=== PATIENT | female | born 1945 | race Caucasian/White ===

== ENCOUNTER 2020-03-19 17:22 | Inpatient (IN) ==
[2020-03-19] MEDS ORDERED: Ondansetron ODT 4 MG TAB.RAPDIS SL PRN (20:16)
[2020-03-19] MEDS ORDERED: Acetaminophen 325 MG TABLET PO PRN (20:16)
[2020-03-19] MEDS ORDERED: Naloxone 0.4 MG/ML INJ IVP PRN (20:16)
[2020-03-19] MEDS ORDERED: Perflutren Lipid Microsphere 1.3 ML in 0.9 % Sodium Chloride 8.7 ML IVP PRN (20:22)
[2020-03-19 21:03] LABS: Basophils # 0.1 K/mcL (0.0-0.2); Basophils % 0.4 %; Eosinophils # 0.1 K/mcL (0.0-0.6); Eosinophils % 0.4 %; Hemoglobin 9.1 g/dL (11.5-15.4); Immature Granulocytes % 0.6 % (0-4); Lymphocytes # 1.4 K/mcL (0.6-4.6); Lymphocytes % 10.3 %; Mean Corpuscular HGB Conc 28.4 g/dL (31.6-35.5); Mean Corpuscular Hemoglobin 20.4 pg (28.0-33.3); Mean Corpuscular Volume 71.6 fL (83.0-100.0); Mean Platelet Volume 11.2 fL (9.4-12.4); Monocytes # 1.2 K/mcL (0.0-1.3); Monocytes % 8.3 %; Neutrophils # 11.2 K/mcL (1.6-8.9); Nucleated Red Blood Cells 0.2 /100 WBC (0); Platelet Count 360 K/mcL (140-400); Red Blood Count 4.47 M/mcL (3.82-4.97); Red Cell Distribution Width 20.1 % (11.5-14.5)
[2020-03-19 21:14] LABS: BUN/Creatinine Ratio 38 (6-26); Blood Urea Nitrogen 36 mg/dL (8-23); Calcium 10.2 mg/dL (8.6-10.3); Carbon Dioxide 21 mEq/L (23-29); Chloride 101 mEq/L (98-107); Glucose 108 mg/dL (70-105); Osmolality,Calculated 287 (280-300); Potassium 4.2 mEq/L (3.5-5.1); Sodium 134 mEq/L (136-145); eGFR For African Americans > 60 (> 60); eGFR For Non-African Americans 58 (> 60)
[2020-03-19 21:20] LABS: Anisocytosis 2+ (Not Present); Hypochromasia Present (Not Present); Platelet Estimate Normal (Normal)
[2020-03-19] MEDS ORDERED: Nystatin Ointment 15 GM TUBE TP SCH (21:30)
[2020-03-19] MEDS ORDERED: Furosemide 40 MG/4 ML VIAL IVP ONE (21:50)
[2020-03-20 07:18] LABS: Prothrombin Time 22.5 Seconds (9.4-12.1)
[2020-03-20] MEDS ORDERED: Dextrose Gel 15 GM/37.5 ML TUBE PO PRN ×2 (07:22)
[2020-03-20] MEDS ORDERED: *HR* Dextrose 50 % in Water (Vial) 50 ML VIAL IVP PRN (07:22)
[2020-03-20] MEDS ORDERED: D5% in Water 1,000 ML IVC PRN (07:22)
[2020-03-20 07:50] LABS: BUN/Creatinine Ratio 38 (6-26); Blood Urea Nitrogen 34 mg/dL (8-23); Calcium 9.3 mg/dL (8.6-10.3); Carbon Dioxide 22 mEq/L (23-29); Chloride 103 mEq/L (98-107); Glucose 99 mg/dL (70-105); Magnesium 1.7 mg/dL (1.6-2.6); Osmolality,Calculated 290 (280-300); Phosphorous 3.6 mg/dL (2.7-4.5); Potassium 3.8 mEq/L (3.5-5.1); Sodium 136 mEq/L (136-145); eGFR For African Americans > 60 (> 60); eGFR For Non-African Americans > 60 (> 60)
[2020-03-20 08:34] LABS: % Iron Saturation 11 % (15-50); Iron 35 mcg/dL (50-170); Transferrin 237 mg/dL (203-362)
[2020-03-20] MEDS: Insulin LISPRO 300 UNITS/3 ML VIAL SUBQ SCH ×4 (08:42→19:46)
[2020-03-20 08:52] LABS: Ferritin 22 ng/mL (10-120)
[2020-03-20] MEDS ORDERED: cefTRIAXone 1,000 MG in 0.9 % Sodium Chloride Mini Bag 100 ML IVPB SCH (09:00)
[2020-03-20] MEDS: 0.9 % Sodium Chloride 500 ML IVC SCH (10:48)
[2020-03-20 11:51] LABS: Folate 8.3 ng/mL (3.0-16.0)
[2020-03-20] MEDS: cefTRIAXone 1,000 MG in Water for inj. (sterile) 10 ML IVP SCH (18:17)
[2020-03-20] MEDS: Azithromycin 500 MG in 0.9 % Sodium Chloride 250 ML IVPB SCH (18:19)
[2020-03-20] MEDS: Fluconazole 200 MG/100 ML 200 MG/100 ML BAG IVPB SCH (18:19)
[2020-03-20] MEDS: Pantoprazole 40 MG VIAL IVP SCH (18:20)
[2020-03-21] MEDS: Insulin LISPRO 300 UNITS/3 ML VIAL SUBQ SCH ×6 (00:20→20:45)
[2020-03-21] MEDS: Pantoprazole 40 MG VIAL IVP SCH ×2 (05:47→18:12)
[2020-03-21] MEDS: 0.9 % Sodium Chloride 500 ML IVC SCH ×2 (07:21→17:49)
[2020-03-21 09:14] LABS: Hemoglobin 8.5 g/dL (11.5-15.4); Immature Granulocytes % 0.9 % (0-4); Nucleated Red Blood Cells 0.2 /100 WBC (0)
[2020-03-21 09:15] LABS: Hematocrit 30.1 % (35.3-44.9); Mean Corpuscular HGB Conc 28.2 g/dL (31.6-35.5); Mean Corpuscular Hemoglobin 20.4 pg (28.0-33.3); Mean Corpuscular Volume 72.4 fL (83.0-100.0); Platelet Count 347 K/mcL (140-400); Red Blood Count 4.16 M/mcL (3.82-4.97); Red Cell Distribution Width 20.6 % (11.5-14.5); Segmented Neutrophils % 72.8 %; White Blood Count 12.7 K/mcL (4.3-11.1)
[2020-03-21 09:16] LABS: Basophils # 0.1 K/mcL (0.0-0.2); Basophils % 0.5 %; Eosinophils # 0.5 K/mcL (0.0-0.6); Eosinophils % 4.1 %; Lymphocytes # 1.7 K/mcL (0.6-4.6); Lymphocytes % 13.2 %; Monocytes # 1.1 K/mcL (0.0-1.3); Monocytes % 8.5 %
[2020-03-21 09:20] LABS: Neutrophils # 9.3 K/mcL (1.6-8.9)
[2020-03-21 09:34] LABS: BUN/Creatinine Ratio 38 (6-26); Blood Urea Nitrogen 33 mg/dL (8-23); Calcium 9.2 mg/dL (8.6-10.3); Carbon Dioxide 24 mEq/L (23-29); Chloride 105 mEq/L (98-107); Glucose 167 mg/dL (70-105); Osmolality,Calculated 295 (280-300); Potassium 3.7 mEq/L (3.5-5.1); Sodium 137 mEq/L (136-145); eGFR For African Americans > 60 (> 60); eGFR For Non-African Americans > 60 (> 60)
[2020-03-21 09:38] LABS: Anisocytosis 2+ (Not Present); Hypochromasia Present (Not Present); Ovalocytes 1+ (Not Present)
[2020-03-21 09:39] LABS: Platelet Estimate Normal (Normal)
[2020-03-21] MEDS: cefTRIAXone 1,000 MG in Water for inj. (sterile) 10 ML IVP SCH (13:07)
[2020-03-21] MEDS: Azithromycin 500 MG in 0.9 % Sodium Chloride 250 ML IVPB SCH (13:08)
[2020-03-21] MEDS: Fluconazole 200 MG/100 ML 200 MG/100 ML BAG IVPB SCH (18:09)
[2020-03-22] MEDS: Insulin LISPRO 300 UNITS/3 ML VIAL SUBQ SCH ×6 (00:29→21:01)
[2020-03-22 03:28] LABS: Hemoglobin 7.7 g/dL (11.5-15.4); Monocytes % 8.8 %; Red Cell Distribution Width 20.6 % (11.5-14.5)
[2020-03-22 03:29] LABS: Basophils # 0.1 K/mcL (0.0-0.2); Basophils % 0.5 %; Eosinophils # 0.5 K/mcL (0.0-0.6); Hematocrit 27.2 % (35.3-44.9); Lymphocytes # 1.5 K/mcL (0.6-4.6); Lymphocytes % 11.5 %; Mean Corpuscular HGB Conc 28.3 g/dL (31.6-35.5); Mean Corpuscular Hemoglobin 20.4 pg (28.0-33.3); Mean Platelet Volume 11.2 fL (9.4-12.4); Monocytes # 1.2 K/mcL (0.0-1.3); Neutrophils # 9.8 K/mcL (1.6-8.9); Platelet Count 301 K/mcL (140-400); Red Blood Count 3.78 M/mcL (3.82-4.97); Segmented Neutrophils % 74.2 %; White Blood Count 13.2 K/mcL (4.3-11.1)
[2020-03-22 03:47] LABS: BUN/Creatinine Ratio 39 (6-26); Blood Urea Nitrogen 33 mg/dL (8-23); Calcium 8.9 mg/dL (8.6-10.3); Carbon Dioxide 24 mEq/L (23-29); Chloride 105 mEq/L (98-107); Glucose 129 mg/dL (70-105); Osmolality,Calculated 295 (280-300); Potassium 3.8 mEq/L (3.5-5.1); Sodium 138 mEq/L (136-145); eGFR For African Americans > 60 (> 60); eGFR For Non-African Americans > 60 (> 60)
[2020-03-22 03:59] LABS: Anisocytosis 2+ (Not Present); Hypochromasia Present (Not Present); Platelet Estimate Normal (Normal)
[2020-03-22] MEDS: Pantoprazole 40 MG VIAL IVP SCH ×2 (06:05→17:51)
[2020-03-22] MEDS: 0.9 % Sodium Chloride 500 ML IVC SCH (08:22)
[2020-03-22 09:44] LABS: Basophils # 0.1 K/mcL (0.0-0.2); Basophils % 0.5 %; Eosinophils # 0.3 K/mcL (0.0-0.6); Eosinophils % 2.4 %; Hematocrit 27.4 % (35.3-44.9); Hemoglobin 7.6 g/dL (11.5-15.4); Lymphocytes # 0.9 K/mcL (0.6-4.6); Mean Corpuscular HGB Conc 27.7 g/dL (31.6-35.5); Mean Corpuscular Hemoglobin 20.1 pg (28.0-33.3); Mean Corpuscular Volume 72.3 fL (83.0-100.0); Mean Platelet Volume 10.8 fL (9.4-12.4); Monocytes % 8.3 %; Neutrophils # 9.9 K/mcL (1.6-8.9); Platelet Count 317 K/mcL (140-400); Red Blood Count 3.79 M/mcL (3.82-4.97); Red Cell Distribution Width 20.8 % (11.5-14.5); Segmented Neutrophils % 80.8 %; White Blood Count 12.2 K/mcL (4.3-11.1)
[2020-03-22 10:03] LABS: BUN/Creatinine Ratio 38 (6-26); Blood Urea Nitrogen 33 mg/dL (8-23); Calcium 8.9 mg/dL (8.6-10.3); Carbon Dioxide 25 mEq/L (23-29); Chloride 107 mEq/L (98-107); Glucose 205 mg/dL (70-105); Hypochromasia Present (Not Present); Osmolality,Calculated 301 (280-300); Ovalocytes 1+ (Not Present); Platelet Estimate Normal (Normal); Potassium 3.9 mEq/L (3.5-5.1); Sodium 139 mEq/L (136-145); eGFR For African Americans > 60 (> 60); eGFR For Non-African Americans > 60 (> 60)
[2020-03-22 10:04] LABS: Anisocytosis 2+ (Not Present); Polychromasia 1+ (Not Present)
[2020-03-22] MEDS ORDERED: *HR* Propofol 200 MG/20 ML VIAL IVP ONE (12:13)
[2020-03-22] MEDS ORDERED: Lidocaine -MPF 2% 5 ML VIAL INFILT ONE (12:13)
[2020-03-22] MEDS: cefTRIAXone 1,000 MG in Water for inj. (sterile) 10 ML IVP SCH (13:35)
[2020-03-22] MEDS: Azithromycin 500 MG in 0.9 % Sodium Chloride 250 ML IVPB SCH (13:35)
[2020-03-22] MEDS: Fluconazole 200 MG/100 ML 200 MG/100 ML BAG IVPB SCH (17:51)
[2020-03-22] MEDS: Furosemide 40 MG/4 ML VIAL IVP SCH (18:53)
[2020-03-22] MEDS: Ipratropium/Albuterol Neb 3 ML IH SCH (22:04)
[2020-03-23] MEDS: Insulin LISPRO 300 UNITS/3 ML VIAL SUBQ SCH ×6 (00:54→20:31)
[2020-03-23] MEDS ORDERED: Pantoprazole 40 MG VIAL IVP ONE (01:24)
[2020-03-23 02:09] LABS: Basophils % 0.3 %; Eosinophils # 0.2 K/mcL (0.0-0.6); Eosinophils % 1.3 %; Hemoglobin 7.6 g/dL (11.5-15.4); Lymphocytes # 0.8 K/mcL (0.6-4.6); Lymphocytes % 6.4 %; Mean Corpuscular HGB Conc 28.1 g/dL (31.6-35.5); Mean Corpuscular Hemoglobin 20.3 pg (28.0-33.3); Mean Corpuscular Volume 72.2 fL (83.0-100.0); Mean Platelet Volume 10.8 fL (9.4-12.4); Monocytes % 8.3 %; Neutrophils # 9.9 K/mcL (1.6-8.9); Nucleated Red Blood Cells 0.2 /100 WBC (0); Platelet Count 291 K/mcL (140-400); Red Blood Count 3.74 M/mcL (3.82-4.97); Segmented Neutrophils % 82.7 %
[2020-03-23 02:28] LABS: BUN/Creatinine Ratio 44 (6-26); Blood Urea Nitrogen 33 mg/dL (8-23); Calcium 9.1 mg/dL (8.6-10.3); Carbon Dioxide 24 mEq/L (23-29); Chloride 106 mEq/L (98-107); Glucose 159 mg/dL (70-105); Osmolality,Calculated 301 (280-300); Potassium 4.1 mEq/L (3.5-5.1); Sodium 140 mEq/L (136-145); eGFR For African Americans > 60 (> 60); eGFR For Non-African Americans > 60 (> 60)
[2020-03-23] MEDS ORDERED: Aspirin 325 MG TABLET PO ONE (03:10)
[2020-03-23 03:19] LABS: Anisocytosis 1+ (Not Present); Hypochromasia Present (Not Present); Polychromasia 1+ (Not Present)
[2020-03-23 03:20] LABS: Ovalocytes 1+ (Not Present); Platelet Estimate Normal (Normal)
[2020-03-23] MEDS: Ipratropium/Albuterol Neb 3 ML IH SCH ×4 (04:24→21:52)
[2020-03-23] MEDS: Pantoprazole 40 MG VIAL IVP SCH ×2 (05:26→16:58)
[2020-03-23] MEDS: Furosemide 40 MG/4 ML VIAL IVP SCH ×2 (08:48→16:57)
[2020-03-23] MEDS: cefTRIAXone 1,000 MG in Water for inj. (sterile) 10 ML IVP SCH (14:13)
[2020-03-23] MEDS: Fluconazole 100 MG TABLET PO SCH (14:19)
[2020-03-24 02:55] LABS: Basophils # 0.1 K/mcL (0.0-0.2); Basophils % 0.4 %; Eosinophils # 0.4 K/mcL (0.0-0.6); Eosinophils % 3.5 %; Hematocrit 25.4 % (35.3-44.9); Immature Granulocytes % 1.1 % (0-4); Lymphocytes # 1.2 K/mcL (0.6-4.6); Lymphocytes % 9.8 %; Mean Corpuscular HGB Conc 27.6 g/dL (31.6-35.5); Mean Corpuscular Hemoglobin 19.9 pg (28.0-33.3); Mean Corpuscular Volume 72.2 fL (83.0-100.0); Nucleated Red Blood Cells 0.2 /100 WBC (0); Platelet Count 267 K/mcL (140-400); Red Blood Count 3.52 M/mcL (3.82-4.97); Red Cell Distribution Width 21.7 % (11.5-14.5); Segmented Neutrophils % 77.2 %; White Blood Count 12.1 K/mcL (4.3-11.1)
[2020-03-24 03:00] LABS: Neutrophils # 9.3 K/mcL (1.6-8.9)
[2020-03-24 03:15] LABS: BUN/Creatinine Ratio 41 (6-26); Blood Urea Nitrogen 34 mg/dL (8-23); Calcium 8.9 mg/dL (8.6-10.3); Carbon Dioxide 27 mEq/L (23-29); Chloride 105 mEq/L (98-107); Glucose 144 mg/dL (70-105); Osmolality,Calculated 298 (280-300); Potassium 4.1 mEq/L (3.5-5.1); Sodium 139 mEq/L (136-145); eGFR For African Americans > 60 (> 60); eGFR For Non-African Americans > 60 (> 60)
[2020-03-24 03:20] LABS: Anisocytosis 1+ (Not Present); Platelet Estimate Normal (Normal)
[2020-03-24 03:21] LABS: Hypochromasia Present (Not Present); Microcytosis Present (Not Present)
[2020-03-24] MEDS: Ipratropium/Albuterol Neb 3 ML IH SCH ×3 (04:03→15:48)
[2020-03-24] MEDS: Pantoprazole 40 MG VIAL IVP SCH ×2 (06:03→16:13)
[2020-03-24] MEDS: Insulin LISPRO 300 UNITS/3 ML VIAL SUBQ SCH ×4 (10:08→21:22)
[2020-03-24] MEDS: Fluconazole 100 MG TABLET PO SCH (10:08)
[2020-03-24] MEDS: Furosemide 40 MG/4 ML VIAL IVP SCH ×2 (10:08→16:12)
[2020-03-24 10:22] LABS: Basophils % 0.4 %; Red Blood Count 3.48 M/mcL (3.82-4.97)
[2020-03-24 10:23] LABS: Eosinophils # 0.3 K/mcL (0.0-0.6); Eosinophils % 3.2 %; Hematocrit 25.6 % (35.3-44.9); Hemoglobin 7.1 g/dL (11.5-15.4); Immature Granulocytes % 0.7 % (0-4); Lymphocytes % 8.1 %; Mean Corpuscular HGB Conc 27.7 g/dL (31.6-35.5); Mean Corpuscular Hemoglobin 20.4 pg (28.0-33.3); Mean Corpuscular Volume 73.6 fL (83.0-100.0); Mean Platelet Volume 11.2 fL (9.4-12.4); Monocytes # 0.8 K/mcL (0.0-1.3); Neutrophils # 8.3 K/mcL (1.6-8.9); Platelet Count 271 K/mcL (140-400); Red Cell Distribution Width 21.3 % (11.5-14.5); Segmented Neutrophils % 79.6 %; White Blood Count 10.4 K/mcL (4.3-11.1)
[2020-03-24 10:25] LABS: Lymphocytes # 0.8 K/mcL (0.6-4.6)
[2020-03-24 10:50] LABS: Hypochromasia Present (Not Present); Ovalocytes 1+ (Not Present); Platelet Estimate Normal (Normal); Stomatocytes 1+ (Not Present)
[2020-03-24] MEDS: Iron Sucrose Complex 250 MG in 0.9 % Sodium Chloride 250 ML IVPB SCH (14:04)
[2020-03-24 17:23] LABS: Basophils # 0.1 K/mcL (0.0-0.2); Basophils % 0.5 %; Eosinophils # 0.5 K/mcL (0.0-0.6); Eosinophils % 4.7 %; Hematocrit 26.7 % (35.3-44.9); Hemoglobin 7.2 g/dL (11.5-15.4); Immature Granulocytes % 0.9 % (0-4); Lymphocytes # 1.6 K/mcL (0.6-4.6); Lymphocytes % 14.4 %; Mean Corpuscular Hemoglobin 19.7 pg (28.0-33.3); Monocytes % 8.6 %; Neutrophils # 7.9 K/mcL (1.6-8.9); Nucleated Red Blood Cells 0.2 /100 WBC (0); Platelet Count 252 K/mcL (140-400); Red Blood Count 3.66 M/mcL (3.82-4.97); Red Cell Distribution Width 21.3 % (11.5-14.5); Segmented Neutrophils % 70.9 %; White Blood Count 11.1 K/mcL (4.3-11.1)
[2020-03-24 17:24] LABS: Hypochromasia Present (Not Present)
[2020-03-25 04:43] LABS: Nucleated Red Blood Cells 0.2 /100 WBC (0)
[2020-03-25 04:45] LABS: Basophils # 0.1 K/mcL (0.0-0.2); Basophils % 0.6 %; Eosinophils # 0.6 K/mcL (0.0-0.6); Hematocrit 26.6 % (35.3-44.9); Hemoglobin 7.3 g/dL (11.5-15.4); Immature Granulocytes % 1.1 % (0-4); Lymphocytes # 1.2 K/mcL (0.6-4.6); Lymphocytes % 9.8 %; Mean Corpuscular HGB Conc 27.4 g/dL (31.6-35.5); Mean Corpuscular Hemoglobin 19.8 pg (28.0-33.3); Mean Corpuscular Volume 72.3 fL (83.0-100.0); Mean Platelet Volume 10.8 fL (9.4-12.4); Monocytes # 1.1 K/mcL (0.0-1.3); Monocytes % 8.6 %; Neutrophils # 9.5 K/mcL (1.6-8.9); Platelet Count 286 K/mcL (140-400); Red Blood Count 3.68 M/mcL (3.82-4.97); Red Cell Distribution Width 21.5 % (11.5-14.5); Segmented Neutrophils % 74.9 %; White Blood Count 12.7 K/mcL (4.3-11.1)
[2020-03-25 04:51] LABS: BUN/Creatinine Ratio 41 (6-26); Blood Urea Nitrogen 32 mg/dL (8-23); Calcium 9.3 mg/dL (8.6-10.3); Carbon Dioxide 28 mEq/L (23-29); Chloride 104 mEq/L (98-107); Glucose 137 mg/dL (70-105); Hypochromasia Present (Not Present); Osmolality,Calculated 293 (280-300); Platelet Estimate Normal (Normal); Potassium 4.9 mEq/L (3.5-5.1); Sodium 137 mEq/L (136-145); eGFR For African Americans > 60 (> 60); eGFR For Non-African Americans > 60 (> 60)
[2020-03-25] MEDS: Ipratropium/Albuterol Neb 3 ML IH PRN ×2 (04:59→20:03)
[2020-03-25] MEDS: Pantoprazole 40 MG VIAL IVP SCH ×2 (05:41→17:29)
[2020-03-25] MEDS: Furosemide 40 MG/4 ML VIAL IVP SCH ×2 (08:25→17:27)
[2020-03-25] MEDS: Fluconazole 100 MG TABLET PO SCH (08:25)
[2020-03-25] MEDS: Insulin LISPRO 300 UNITS/3 ML VIAL SUBQ SCH ×4 (08:27→21:15)
[2020-03-25] MEDS: Iron Sucrose Complex 250 MG in 0.9 % Sodium Chloride 250 ML IVPB SCH (10:19)
[2020-03-25] MEDS: Acetaminophen 325 MG TABLET PO PRN (22:27)
[2020-03-26] MEDS: Ipratropium/Albuterol Neb 3 ML IH PRN (04:03)
[2020-03-26] MEDS: Pantoprazole 40 MG VIAL IVP SCH (05:09)
[2020-03-26] MEDS: Insulin LISPRO 300 UNITS/3 ML VIAL SUBQ SCH ×4 (08:04→20:39)
[2020-03-26 08:16] LABS: Nucleated Red Blood Cells 0.3 /100 WBC (0)
[2020-03-26 08:17] LABS: Basophils # 0.1 K/mcL (0.0-0.2); Basophils % 0.5 %; Eosinophils # 0.5 K/mcL (0.0-0.6); Eosinophils % 4.1 %; Hematocrit 27.4 % (35.3-44.9); Hemoglobin 7.6 g/dL (11.5-15.4); Immature Granulocytes % 1.6 % (0-4); Lymphocytes # 1.4 K/mcL (0.6-4.6); Lymphocytes % 12.2 %; Mean Corpuscular HGB Conc 27.7 g/dL (31.6-35.5); Mean Corpuscular Hemoglobin 20.3 pg (28.0-33.3); Mean Corpuscular Volume 73.1 fL (83.0-100.0); Mean Platelet Volume 10.9 fL (9.4-12.4); Monocytes # 0.9 K/mcL (0.0-1.3); Monocytes % 7.8 %; Neutrophils # 8.5 K/mcL (1.6-8.9); Platelet Count 295 K/mcL (140-400); Red Blood Count 3.75 M/mcL (3.82-4.97); Segmented Neutrophils % 73.8 %; White Blood Count 11.5 K/mcL (4.3-11.1)
[2020-03-26 08:33] LABS: BUN/Creatinine Ratio 33 (6-26); Blood Urea Nitrogen 25 mg/dL (8-23); Calcium 9.5 mg/dL (8.6-10.3); Carbon Dioxide 27 mEq/L (23-29); Chloride 103 mEq/L (98-107); Glucose 121 mg/dL (70-105); Osmolality,Calculated 292 (280-300); Potassium 4.4 mEq/L (3.5-5.1); Sodium 138 mEq/L (136-145); eGFR For African Americans > 60 (> 60); eGFR For Non-African Americans > 60 (> 60)
[2020-03-26 08:38] LABS: Platelet Estimate Normal (Normal)
[2020-03-26 08:39] LABS: Hypochromasia Present (Not Present); Microcytosis Present (Not Present); Ovalocytes 1+ (Not Present); Poikilocytosis 1+ (Not Present)
[2020-03-26 08:40] LABS: Anisocytosis 2+ (Not Present)
[2020-03-26] MEDS: Acetaminophen 325 MG TABLET PO PRN ×2 (09:44→22:48)
[2020-03-26] MEDS: Furosemide 40 MG/4 ML VIAL IVP SCH ×2 (09:46→17:04)
[2020-03-26] MEDS: Fluconazole 100 MG TABLET PO SCH (09:48)
[2020-03-26] MEDS: Iron Sucrose Complex 250 MG in 0.9 % Sodium Chloride 250 ML IVPB SCH (09:49)
[2020-03-26] MEDS ORDERED: Isovue-370 500 ML BOTTLE IVP ONE (15:10)
[2020-03-26] MEDS ORDERED: Furosemide 40 MG/4 ML VIAL IVP SCH (17:15)
[2020-03-26] MEDS: levoFLOXacin 750 MG/150 ML 750 MG/150 ML BAG IVPB SCH (17:57)
[2020-03-26 19:40] LABS: Adenovirus Not Detected (Not Detect); Bordetella Pertussis Not Detected (Not Detect); Chlamydophila pneumoniae Not Detected (Not Detect); Coronavirus 229E Not Detected (Not Detect); Coronavirus HKU1 Not Detected (Not Detect); Coronavirus NL63 Not Detected (Not Detect); Coronavirus OC43 Not Detected (Not Detect); Human Metapneumovirus Not Detected (Not Detect); Human Rhinovirus/Enterovirus Not Detected (Not Detect); Influenza A Subtype 2009 H1 Not Detected (Not Detect); Influenza B Not Detected (Not Detect); Mycoplasma pneumoniae Not Detected (Not Detect); Parainfluenza Virus 1 Not Detected (Not Detect); Parainfluenza Virus 2 Not Detected (Not Detect); Parainfluenza Virus 3 Not Detected (Not Detect); Parainfluenza Virus 4 Not Detected (Not Detect); Respiratory Syncytial Virus Not Detected (Not Detect); SARS-CoV-2 Not Detected (Not Detect)
[2020-03-27] MEDS: Acetaminophen 325 MG TABLET PO PRN ×3 (02:52→23:04)
[2020-03-27 04:16] LABS: Basophils # 0.1 K/mcL (0.0-0.2); Basophils % 0.6 %; Eosinophils # 0.6 K/mcL (0.0-0.6); Eosinophils % 5.9 %; Hematocrit 27.3 % (35.3-44.9); Hemoglobin 7.5 g/dL (11.5-15.4); Immature Granulocytes % 2.5 % (0-4); Lymphocytes % 14.2 %; Mean Corpuscular HGB Conc 27.5 g/dL (31.6-35.5); Mean Corpuscular Hemoglobin 20.1 pg (28.0-33.3); Mean Corpuscular Volume 73.2 fL (83.0-100.0); Mean Platelet Volume 11.4 fL (9.4-12.4); Neutrophils # 7.4 K/mcL (1.6-8.9); Nucleated Red Blood Cells 1.1 /100 WBC (0); Platelet Count 292 K/mcL (140-400); Red Blood Count 3.73 M/mcL (3.82-4.97); Red Cell Distribution Width 22.3 % (11.5-14.5); Segmented Neutrophils % 67.8 %; White Blood Count 10.9 K/mcL (4.3-11.1)
[2020-03-27 04:19] LABS: Lymphocytes # 1.6 K/mcL (0.6-4.6)
[2020-03-27 04:30] LABS: BUN/Creatinine Ratio 26 (6-26); Blood Urea Nitrogen 21 mg/dL (8-23); Calcium 9.1 mg/dL (8.6-10.3); Carbon Dioxide 26 mEq/L (23-29); Chloride 102 mEq/L (98-107); Glucose 96 mg/dL (70-105); Osmolality,Calculated 285 (280-300); Sodium 136 mEq/L (136-145); eGFR For African Americans > 60 (> 60); eGFR For Non-African Americans > 60 (> 60)
[2020-03-27 04:37] LABS: Anisocytosis 2+ (Not Present); Hypochromasia Present (Not Present); Macrocytosis Present (Not Present); Platelet Estimate Normal (Normal); Polychromasia 1+ (Not Present)
[2020-03-27] MEDS: Furosemide 40 MG/4 ML VIAL IVP SCH ×2 (08:05→16:06)
[2020-03-27] MEDS: Insulin LISPRO 300 UNITS/3 ML VIAL SUBQ SCH ×4 (08:06→23:05)
[2020-03-27] MEDS: Fluconazole 100 MG TABLET PO SCH (10:45)
[2020-03-27] MEDS: levoFLOXacin 750 MG/150 ML 750 MG/150 ML BAG IVPB SCH (10:46)
[2020-03-28 05:55] LABS: Basophils % 0.7 %
[2020-03-28 05:56] LABS: Basophils # 0.1 K/mcL (0.0-0.2); Eosinophils # 0.5 K/mcL (0.0-0.6); Eosinophils % 5.3 %; Hematocrit 32.2 % (35.3-44.9); Hemoglobin 8.7 g/dL (11.5-15.4); Immature Granulocytes % 2.6 % (0-4); Immature Platelets 8.3 % (1.1-6.1); Lymphocytes # 1.6 K/mcL (0.6-4.6); Lymphocytes % 15.5 %; Mean Corpuscular Hemoglobin 20.3 pg (28.0-33.3); Mean Corpuscular Volume 75.2 fL (83.0-100.0); Monocytes # 0.8 K/mcL (0.0-1.3); Monocytes % 7.8 %; Nucleated Red Blood Cells 0.3 /100 WBC (0); Platelet Count 251 K/mcL (140-400); Red Blood Count 4.28 M/mcL (3.82-4.97); Red Cell Distribution Width 24.3 % (11.5-14.5); Segmented Neutrophils % 68.1 %; White Blood Count 10.2 K/mcL (4.3-11.1)
[2020-03-28 06:13] LABS: BUN/Creatinine Ratio 23 (6-26); Blood Urea Nitrogen 19 mg/dL (8-23); Calcium 9.5 mg/dL (8.6-10.3); Carbon Dioxide 27 mEq/L (23-29); Chloride 103 mEq/L (98-107); Glucose 102 mg/dL (70-105); Osmolality,Calculated 290 (280-300); Potassium 4.1 mEq/L (3.5-5.1); Sodium 139 mEq/L (136-145); eGFR For African Americans > 60 (> 60); eGFR For Non-African Americans > 60 (> 60)
[2020-03-28] MEDS: Insulin LISPRO 300 UNITS/3 ML VIAL SUBQ SCH ×4 (07:17→21:55)
[2020-03-28 07:43] LABS: Anisocytosis 2+ (Not Present); Hypochromasia Present (Not Present); Macrocytosis Present (Not Present); Microcytosis Present (Not Present); Ovalocytes 1+ (Not Present); Platelet Estimate Slight Decrease (Normal)
[2020-03-28] MEDS: Furosemide 40 MG/4 ML VIAL IVP SCH ×2 (07:59→16:26)
[2020-03-28] MEDS: levoFLOXacin 750 MG/150 ML 750 MG/150 ML BAG IVPB SCH (11:15)
[2020-03-28] MEDS: Fluconazole 100 MG TABLET PO SCH (11:15)
[2020-03-28] MEDS ORDERED: Simethicone 80 MG TAB.CHEW PO PRN (13:16)
[2020-03-28] MEDS: Acetaminophen 325 MG TABLET PO PRN (22:01)
[2020-03-29 02:02] LABS: Mean Corpuscular HGB Conc 27.2 g/dL (31.6-35.5)
[2020-03-29 02:04] LABS: Basophils # 0.1 K/mcL (0.0-0.2); Basophils % 0.6 %; Eosinophils # 0.4 K/mcL (0.0-0.6); Eosinophils % 4.3 %; Hematocrit 34.2 % (35.3-44.9); Hemoglobin 9.3 g/dL (11.5-15.4); Immature Granulocytes % 3.2 % (0-4); Lymphocytes # 1.9 K/mcL (0.6-4.6); Lymphocytes % 19.3 %; Mean Corpuscular Hemoglobin 20.4 pg (28.0-33.3); Mean Corpuscular Volume 75.2 fL (83.0-100.0); Mean Platelet Volume 10.7 fL (9.4-12.4); Monocytes # 0.8 K/mcL (0.0-1.3); Monocytes % 8.7 %; Neutrophils # 6.2 K/mcL (1.6-8.9); Platelet Count 283 K/mcL (140-400); Red Blood Count 4.55 M/mcL (3.82-4.97); Red Cell Distribution Width 25.8 % (11.5-14.5); Segmented Neutrophils % 63.9 %; White Blood Count 9.7 K/mcL (4.3-11.1)
[2020-03-29 02:19] LABS: Anisocytosis 3+ (Not Present); Hypochromasia Present (Not Present); Macrocytosis Present (Not Present); Microcytosis Present (Not Present); Platelet Estimate Normal (Normal)
[2020-03-29] MEDS: Insulin LISPRO 300 UNITS/3 ML VIAL SUBQ SCH ×4 (08:13→19:30)
[2020-03-29] MEDS: Furosemide 40 MG/4 ML VIAL IVP SCH ×2 (08:21→17:12)
[2020-03-29] MEDS: levoFLOXacin 750 MG/150 ML 750 MG/150 ML BAG IVPB SCH (08:21)
[2020-03-29] MEDS: Fluconazole 100 MG TABLET PO SCH (08:22)
[2020-03-29] MEDS: Acetaminophen 325 MG TABLET PO PRN (20:26)
[2020-03-30] MEDS: Insulin LISPRO 300 UNITS/3 ML VIAL SUBQ SCH ×4 (07:20→19:29)
[2020-03-30] MEDS: levoFLOXacin 750 MG/150 ML 750 MG/150 ML BAG IVPB SCH (09:38)
[2020-03-30] MEDS: Furosemide 40 MG/4 ML VIAL IVP SCH ×2 (09:39→17:33)
[2020-03-30] MEDS: Fluconazole 100 MG TABLET PO SCH (09:39)
[2020-03-31] MEDS: Insulin LISPRO 300 UNITS/3 ML VIAL SUBQ SCH ×4 (08:26→21:37)
[2020-03-31] MEDS: levoFLOXacin 750 MG TABLET PO SCH (08:27)
[2020-03-31] MEDS: Furosemide 40 MG/4 ML VIAL IVP SCH ×2 (08:28→16:57)
[2020-03-31] MEDS: Fluconazole 100 MG TABLET PO SCH (08:28)
[2020-03-31] MEDS: Acetaminophen 325 MG TABLET PO PRN (21:45)
[2020-04-01] MEDS: Insulin LISPRO 300 UNITS/3 ML VIAL SUBQ SCH ×4 (07:27→21:06)
[2020-04-01] MEDS: Fluconazole 100 MG TABLET PO SCH (08:00)
[2020-04-01] MEDS: Furosemide 40 MG/4 ML VIAL IVP SCH ×2 (08:00→16:09)
[2020-04-01] MEDS: levoFLOXacin 750 MG TABLET PO SCH (08:00)
[2020-04-01] MEDS: Acetaminophen 325 MG TABLET PO PRN (16:09)
[2020-04-01] MEDS ORDERED: Perflutren Lipid Microsphere 1.3 ML in 0.9 % Sodium Chloride 8.7 ML IVP PRN (16:26)
[2020-04-01] MEDS: Aspirin 81 MG TAB.CHEW PO SCH (17:25)
[2020-04-01 18:55] LABS: Estimated Average Glucose 111 mg/dl; Hemoglobin A1C 5.5 %
[2020-04-01] MEDS ORDERED: Saline Nasal Spray 44 ML BOTTLE NS PRN (20:07)
[2020-04-01] MEDS ORDERED: Insulin DETEMIR 100 UNIT/ML X5UNITS SUBQ SCH (21:00)
[2020-04-02 01:31] LABS: Basophils % 0.7 %; Mean Corpuscular HGB Conc 27.4 g/dL (31.6-35.5); Red Blood Count 5.02 M/mcL (3.82-4.97)
[2020-04-02 01:32] LABS: Basophils # 0.1 K/mcL (0.0-0.2); Eosinophils # 0.3 K/mcL (0.0-0.6); Eosinophils % 3.5 %; Hematocrit 38.7 % (35.3-44.9); Hemoglobin 10.6 g/dL (11.5-15.4); Immature Granulocytes % 0.9 % (0-4); Immature Platelets 6.7 % (1.1-6.1); Lymphocytes # 1.5 K/mcL (0.6-4.6); Lymphocytes % 19.6 %; Mean Corpuscular Hemoglobin 21.1 pg (28.0-33.3); Mean Corpuscular Volume 77.1 fL (83.0-100.0); Monocytes % 9.7 %; Platelet Count 204 K/mcL (140-400); Red Cell Distribution Width 28.8 % (11.5-14.5); Segmented Neutrophils % 65.6 %; White Blood Count 7.7 K/mcL (4.3-11.1)
[2020-04-02 01:34] LABS: Monocytes # 0.8 K/mcL (0.0-1.3); Neutrophils # 5.1 K/mcL (1.6-8.9)
[2020-04-02 01:42] LABS: Calcium 9.9 mg/dL (8.6-10.3); Potassium 3.5 mEq/L (3.5-5.1)
[2020-04-02 02:25] LABS: Anisocytosis 2+ (Not Present); Platelet Estimate Normal (Normal); Poikilocytosis 1+ (Not Present)
[2020-04-02 02:26] LABS: Hypochromasia Present (Not Present)
[2020-04-02] MEDS: Insulin LISPRO 300 UNITS/3 ML VIAL SUBQ SCH ×2 (07:58→14:17)
[2020-04-02] MEDS: levoFLOXacin 750 MG TABLET PO SCH (08:12)
[2020-04-02] MEDS: Aspirin 81 MG TAB.CHEW PO SCH (08:12)
[2020-04-02] MEDS: Fluconazole 100 MG TABLET PO SCH (08:12)
[2020-04-02] MEDS ORDERED: Furosemide 40 MG TABLET PO SCH (09:00)
[2020-04-02 11:19] VITALS: BP 118/72
[2020-04-03] MEDS ORDERED: Fluconazole 100 MG TABLET PO SCH (09:00)
[2020-04-04] MEDS ORDERED: levoFLOXacin 750 MG TABLET PO SCH (09:00)
== END 2020-04-02 16:19 | DRG 871 ==
LOC: 2NNU → SUATTDRO 19:15 → 2ANU 03-20 02:41 → SUATTDRO 03-22 18:27
PROVIDERS: ADMIT Internal Medicine; ATTEND General Practice